=== PATIENT | female | born 1940 | race Two or more races ===

== ENCOUNTER 2025-07-07 21:22 | Inpatient (IN) | payer MEDICARE ==
[~2025-07-07] VITALS: Ht 157.5 cm; Wt 56.7 kg
[2025-07-07 22:22] LABS: PLATELET COUNT (AUTO) 556 K/uL (150-450); RED BLOOD CELL COUNT(AUTO) 4.06 MIL/uL (4.0-5.2); RED CELL DISTRIBUTION WIDTH 19.8 % (11.5-15.0); WHITE BLOOD COUNT (AUTO) 7.4 K/uL (4.3-11.0)
[2025-07-07] MEDS ORDERED: ONDANSETRON HCL/PF 4 MG/2 ML VIAL ONE (22:26)
[2025-07-07] MEDS ORDERED: FAMOTIDINE/PF INJ 20 MG/2 ML VIAL IV ONE (22:27)
[2025-07-07 22:32] LABS: CALCIUM, SERUM 9.1 mg/dL (8.5-10.1); CREATININE 1.1 mg/dL (0.6-1.3); SODIUM SERUM 142.0 mmol/L (136-145); UREA NITROGEN, BLOOD 14.0 mg/dL (7-18)
[2025-07-07 22:38] LABS: LACTIC ACID 1.0 mmol/L (0.4-2.0)
[2025-07-07] MEDS: FAMOTIDINE/PF INJ 20 MG/2 ML VIAL IV ONE (22:40)
[2025-07-07] MEDS: ONDANSETRON HCL/PF 4 MG/2 ML VIAL IVP ONE (22:40)
[2025-07-07 22:48] LABS: ASPARTATE AMINOTRANSFERASE 24.0 U/L (15-37); TOTAL PROTEIN, SERUM 6.5 g/dL (6.4-8.2)
[2025-07-07] MEDS ORDERED: POTASSIUM CL. PREMIX PERIPHER. 200 ML ONE (22:55)
[2025-07-07] MEDS: IV NS 0.9% 1,000 ML BAG IV ONE (23:00)
[2025-07-07] MEDS ORDERED: POTASSIUM CHLORIDE 20 MEQ POWDER PACKET PO ONE (23:00)
[2025-07-07] MEDS: POTASSIUM CL. PREMIX PERIPHER. 50 ML IV SCH (23:00)
[2025-07-07] MEDS ORDERED: MAGNESIUM HYDROXIDE 30 ML UDC PO PRN (23:30)
[2025-07-07] MEDS ORDERED: ONDANSETRON HCL/PF 4 MG/2 ML VIAL IVP PRN (23:30)
[2025-07-07] MEDS ORDERED: ACETAMINOPHEN 325 MG TABLET PO PRN (23:30)
[2025-07-07] MEDS ORDERED: ZOLPIDEM TARTRATE 5 MG TABLET PO PRN (23:30)
[2025-07-07] MEDS ORDERED: MAG HYDROX/AL HYDROX/SIMETH 30 ML UDC PO PRN (23:30)
[2025-07-07] MEDS ORDERED: Z GUARD REMEDY 4 OZ OINT TP PRN (23:30)
[2025-07-07 23:32] LABS: APPEARANCE,URINE CLEAR (CLEAR); BLOOD, URINE NEGATIVE Ery/uL (NEGATIVE); LEUKOCYTE ESTERASE ,URINE TRACE (NEGATIVE); NITRITE, URINE NEGATIVE (NEGATIVE); UGLUCOSE NEGATIVE (NEGATIVE)
[2025-07-07] MEDS ORDERED: AMIO100T4 PO (23:37)
[2025-07-07] MEDS ORDERED: APIX2.5T PO (23:38)
[2025-07-07] MEDS ORDERED: CLON-418 PO (23:38)
[2025-07-07] MEDS ORDERED: HYDR-4076 PO (23:39)
[2025-07-07] MEDS ORDERED: GABA-532 PO (23:39)
[2025-07-07] MEDS ORDERED: ATOR10TA PO (23:40)
[2025-07-07] MEDS ORDERED: OLAN5TAB3 PO (23:40)
[2025-07-07] MEDS ORDERED: PANT40TA49 PO (23:41)
[2025-07-07] MEDS ORDERED: METO25TA4 PO (23:41)
[2025-07-07] MEDS ORDERED: TRAM50TA2 PO (23:42)
[2025-07-07 23:47] VITALS: O2SAT 97
[2025-07-07 23:55] LABS: ADD URINE CULTURE NO
[2025-07-08] MEDS: IV NS 0.9% 1,000 ML IV PRN (00:32)
[2025-07-08] MEDS: HYDROMORPHONE 1 MG/1 ML DISP.SYRIN IV PRN (01:10)
[2025-07-08] MEDS: METOCLOPRAMIDE HCL 10 MG/2 ML VIAL IV SCH (04:32)
[2025-07-08 06:47] LABS: PLATELET COUNT (AUTO) 448 K/uL (150-450); RED BLOOD CELL COUNT(AUTO) 3.28 MIL/uL (4.0-5.2); RED CELL DISTRIBUTION WIDTH 19.8 % (11.5-15.0); WHITE BLOOD COUNT (AUTO) 6.9 K/uL (4.3-11.0)
[2025-07-08] MEDS ORDERED: MIRT-91 PO (07:21)
[2025-07-08] MEDS ORDERED: ZINC50TA69 PO (07:21)
[2025-07-08] MEDS ORDERED: MEMA5TAB PO (07:21)
[2025-07-08] MEDS ORDERED: ASPI-1420 PO (07:21)
[2025-07-08] MEDS ORDERED: CHOL200059 PO (07:21)
[2025-07-08] MEDS ORDERED: MYRBETRIQ PO (07:21)
[2025-07-08] MEDS ORDERED: DOCU-275 PO (07:21)
[2025-07-08] MEDS ORDERED: SUCR1TAB PO (07:21)
[2025-07-08] MEDS ORDERED: CRANBERRY PO (07:21)
[2025-07-08] MEDS ORDERED: MAGNESIUM PO (07:21)
[2025-07-08] MEDS ORDERED: MEGE20TA3 PO (07:21)
[2025-07-08 07:28] LABS: ASPARTATE AMINOTRANSFERASE 21.0 U/L (15-37); CALCIUM, SERUM 8.4 mg/dL (8.5-10.1); CREATININE 1.1 mg/dL (0.6-1.3); PHOSPHORUS 4.3 mg/dL (2.5-4.9); SODIUM SERUM 144.0 mmol/L (136-145); TOTAL PROTEIN, SERUM 5.5 g/dL (6.4-8.2); UREA NITROGEN, BLOOD 15.0 mg/dL (7-18)
[2025-07-08 08:00] VITALS: BP 179/59; TEMP 97.9; O2SAT 96
[2025-07-08] MEDS: PANTOPRAZOLE 40 MG VIAL IV SCH (08:56)
[2025-07-08] MEDS ORDERED: OXYC-128 PO (09:17)
[2025-07-08] MEDS ORDERED: ONDA4TAB11 PO (09:17)
[2025-07-08] MEDS ORDERED: AMLO5TAB4 PO (09:17)
[2025-07-08 09:49] VITALS: BP 179/59
[2025-07-08] MEDS: AMLODIPINE BESYLATE 5 MG TABLET PO SCH (09:49)
== END 2025-07-08 13:07 | disposition home or self-care (01) | DRG 392 ==
LOC: ER 21:25 → MED 23:33
PROVIDERS: ADMIT Nurse Practitioner Acute Care; ATTEND Nurse Practitioner Family
DX: K31.84 Gastroparesis (principal); E44.0 Moderate protein-calorie malnutrition; C25.9 Malignant neoplasm of pancreas, unspecified; E86.0 Dehydration; E87.6 Hypokalemia; E88.09 Other disorders of plasma-protein metabolism, not elsewhere classified; F03.90 Unspecified dementia, unspecified severity, without behavioral disturbance, psychotic disturbance, mood disturbance, and anxiety; I10 Essential (primary) hypertension; I48.91 Unspecified atrial fibrillation; Z79.01 Long term (current) use of anticoagulants; Z88.2 Allergy status to sulfonamides; R11.2 Nausea with vomiting, unspecified; Z68.22 Body mass index [BMI] 22.0-22.9, adult; Z90.411 Acquired partial absence of pancreas
CPT/HCPCS: 36415; 80048-TC; 80053-TC; 80076-TC; 81001; 83605-TC; 83690-TC; 83735-TC; 84100-TC; 84484-TC; 85025-TC; A4223; G0378; J1171; J1308; J2405; J2470; J2765; J3480; J7030